=== PATIENT | female | born 1985 | race American Indian/Alaskan Native ===

== ENCOUNTER 2021-12-19 00:26 | Emergency (ER) | payer OTHER ==
[2021-12-19] MEDS ORDERED: Ketorolac 15 MG/ML SDV IM ONE (01:28)
[2021-12-19] MEDS ORDERED: Ondansetron 4 MG Tab.DIS PO ONE (01:28)
[2021-12-19] MEDS ORDERED: Ketorolac 30 MG/ML SDV IVPUSH ONE (01:37)
== END 2021-12-19 07:12 | disposition home or self-care (01) ==
LOC: JD.ED 00:26
DX: R07.89 Other chest pain (principal); I10 Essential (primary) hypertension; E78.00 Pure hypercholesterolemia, unspecified; E10.9 Type 1 diabetes mellitus without complications; K21.9 Gastro-esophageal reflux disease without esophagitis; Z79.899 Other long term (current) drug therapy
CPT/HCPCS: 36415; 71045; 80053; 80307; 83690; 84484; 85025; 85610; 93005; 96374; 99285; A9270; J1885; 93010; 99284